=== PATIENT | female | born 1945 | race Caucasian/White ===

== ENCOUNTER → 2023-04-16 | Outpatient (CLI) ==
[~2023-04-16] MED LIST: ACET325T38 PO; AMLO-250 PO; ATOR40TA70 PO; CARV25TA PO; CEFD300C3 PO; CLOP75TA28 PO; DILT240C74 PO; GEMF600T3 PO; GLIM4TAB PO; HYDR1TAB PO; INSU100V16 SC; INSU100V5 SQ; LEVO50TA6 PO; LISI40TA PO; LISI40TA9 PO; LVT.05T PO; METF750T45 PO; METO50TA15 PO; MTF500T PO; NF-GLIP2.5 PO; RISP0.5T65 PO
[2023-04-16 14:13] LABS: BILIRUBIN,URINE NEGATIVE (NEGATIVE); CLARITY,URINE CLOUDY; COLOR,URINE YELLOW; GLUCOSE, URINE (UA) NEGATIVE (NEGATIVE); KETONES,URINE NEGATIVE (NEGATIVE); LEUKOCYTE ESTERASE ,URINE 3+ (NEGATIVE); NITRITE,URINE POSITIVE (NEGATIVE); PROTEIN,URINE 1+ (NEGATIVE)
[2023-04-16 15:05] LABS: BACTERIA,URINE LARGE /HPF; RBC,URINE RARE /HPF; WBC,URINE 50-100 /HPF
== END ==
LOC: LABNPT 14:05
PROVIDERS: ATTEND Internal Medicine
DX: Z01.89 Encounter for other specified special examinations (principal)
CPT/HCPCS: 81000; 87077; 87088; 87186

== ENCOUNTER → 2023-06-28 | Outpatient (CLI) | payer MEDICARE ==
[2023-06-28 20:06] LABS: CLARITY,URINE CLOUDY; COLOR,URINE YELLOW
[2023-06-28 20:07] LABS: BACTERIA,URINE LARGE /HPF; BILIRUBIN,URINE NEGATIVE (NEGATIVE); GLUCOSE, URINE (UA) NEGATIVE (NEGATIVE); KETONES,URINE NEGATIVE (NEGATIVE); LEUKOCYTE ESTERASE ,URINE 2+ (NEGATIVE); NITRITE,URINE POSITIVE (NEGATIVE); PH,URINE 5.5 (5-9); PROTEIN,URINE 1+ (NEGATIVE); RBC,URINE 0-2 /HPF; WBC,URINE >100 /HPF
== END ==
LOC: LABNPT 19:45
PROVIDERS: ATTEND Internal Medicine
DX: Z01.89 Encounter for other specified special examinations (principal)
CPT/HCPCS: 81000; 87088

== ENCOUNTER → 2023-08-25 | Outpatient (CLI) | payer MEDICARE ==
--- NOTE | 2023-08-25 17:28 | Diagnostic Imaging Report ---
PROCEDURE: US Non-ob pelvis comp/trans. TECHNIQUE: Multiple realtime grayscale images were obtained of the pelvis in various projections endovaginally. Transabdominal imaging was also performed. INDICATION: Vaginal bleeding postmenopausal. FINDINGS: The endometrium is abnormally thickened and heterogeneous for age. Color Doppler images showed no abnormal color flow to the endometrium. There is no fibroid or myometrial mass with the uterus 7.9 x 2.1 x 4.5 cm, otherwise unremarkable. A large volume of pelvic stool and gas partially obscure the adnexa. No visible adnexal abnormality. The ovaries could never be definitively identified. IMPRESSION: 1 cm heterogeneous endometrium is thickened despite the absence of detectable color Doppler blood flow given age and postmenopausal bleeding. Consultation for consideration for potential tissue sampling recommended as endometrial malignancy could not be excluded. Dictated by: Dictated on workstation # [id number]
== END ==
LOC: RAD 11:00
PROVIDERS: ATTEND Obstetrics & Gynecology
DX: N93.9 Abnormal uterine and vaginal bleeding, unspecified (principal); R93.89 Abnormal findings on diagnostic imaging of other specified body structures
CPT/HCPCS: 76830; 76856

== ENCOUNTER 2023-09-26 09:50 | Emergency (ER) | payer MEDICARE ==
[~2023-09-26] VITALS: Ht 172.8 cm; Wt 64.5 kg
[~2023-09-26 09:50] MED LIST changes: +CALC215T PO; +CEPH250C PO; +CLN.1T PO; +LOSA50TA63 PO; +MEDR10TA9 PO; +MENT120C2 TP; +RISP0.253 PO
[2023-09-26 11:06] LABS: BASOPHILS % (AUTO) 0 % (0-10); EOSINOPHILS # (AUTO) 0.2 10^3/uL (0.0-0.3); EOSINOPHILS % (AUTO) 1 % (0-10); HEMATOCRIT 35 % (35-52); HEMOGLOBIN 11.9 g/dL (11.5-16.0); LYMPHOCYTES # (AUTO) 1.6 10^3/uL (1.0-4.0); LYMPHOCYTES % (AUTO) 11 % (12-44); MEAN CORPUSCULAR HEMOGLOBIN 32 pg (25-34); MEAN CORPUSCULAR HGB CONC 34 g/dL (32-36); MEAN CORPUSCULAR VOLUME 94 fL (80-99); MEAN PLATELET VOLUME 9.4 fL (9.0-12.2); MONOCYTES # (AUTO) 0.8 10^3/uL (0.0-1.0); MONOCYTES % (AUTO) 6 % (0-12); NEUTROPHILS # (AUTO) 12.2 10^3/uL (1.8-7.8); NEUTROPHILS % (AUTO) 82 % (42-75); PLATELET COUNT 264 10^3/uL (130-400); WHITE BLOOD COUNT 14.8 10^3/uL (4.3-11.0)
[2023-09-26 11:10] LABS: ALBUMIN 4.1 GM/DL (3.2-4.5); POTASSIUM 4.5 MMOL/L (3.6-5.0)
[2023-09-26 11:11] LABS: CALCIUM 9.8 MG/DL (8.5-10.1)
[2023-09-26 11:13] LABS: TOTAL PROTEIN 7.5 GM/DL (6.4-8.2)
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
[2023-09-26 11:14] LABS: BILIRUBIN,TOTAL 0.8 MG/DL (0.1-1.0)
[2023-09-26 11:16] LABS: CREATININE SERUM 0.97 MG/DL (0.60-1.30)
[2023-09-26 11:39] LABS: CLARITY,URINE CLEAR; COLOR,URINE YELLOW
[2023-09-26 11:40] LABS: BACTERIA,URINE NEGATIVE /HPF; BILIRUBIN,URINE NEGATIVE (NEGATIVE); GLUCOSE, URINE (UA) 1+ (NEGATIVE); KETONES,URINE NEGATIVE (NEGATIVE); LEUKOCYTE ESTERASE ,URINE NEGATIVE (NEGATIVE); NITRITE,URINE NEGATIVE (NEGATIVE); PROTEIN,URINE 2+ (NEGATIVE); WBC,URINE RARE /HPF
[2023-09-26 11:42] LABS: BAND NEUTROPHILS 0 %; BASOPHILS % (MANUAL) 0 %; EOSINOPHILS % (MANUAL) 4 %; LYMPHOCYTES % (MANUAL) 7 %; MONOCYTES % (MANUAL) 2 %; NEUTROPHILS % (MANUAL) 87 %
[2023-09-26 11:43] LABS: RBC MORPH NORMAL
[2023-09-26 13:23] VITALS: BP 137/61
== END 2023-09-26 13:40 | disposition home or self-care (01) ==
LOC: EDUNIT# 09:50 → ER 09:51
DX: R33.9 Retention of urine, unspecified (principal); E11.9 Type 2 diabetes mellitus without complications; D72.829 Elevated white blood cell count, unspecified; Z79.4 Long term (current) use of insulin
CPT/HCPCS: 36415; 51702; 80053; 81000; 85007; 85027